=== PATIENT | male | born 1990 | race Caucasian/White ===

== ENCOUNTER 2021-07-15 11:23 | Day surgery (SDC) | payer OTHER ==
[2021-07-15] MEDS ORDERED: Sodium Chloride 0.9(Preservative Free) 10 ML IJ ONE (11:24)
[2021-07-15] MEDS ORDERED: Depo-Medrol 40 MG/ML IM ONE (11:24)
[2021-07-15] MEDS ORDERED: DIPRIVAN 200 MG/20 ML IV ONE (14:42)
[2021-07-15] MEDS ORDERED: Lactated Ringers 1,000 ML IV ONE (15:11)
--- NOTE | 2021-07-15 16:36 | XRAY ---
Indication: Right L3-L5 transforaminal CE. Intraoperative fluoroscopy provided for 20 seconds. 4 digital spot images submitted for interpretation demonstrates posterior needle tips projecting over the expected right L3 and L4 nerve roots. Small amount of contrast injected for needle tip placement. Correlate with intraoperative findings/report.
--- NOTE | 2021-07-15 16:54 | XRAY ---
20 seconds of fluoroscopy was used in surgery for a right L3-L5 transforaminal CE.
== END 2021-07-15 15:05 | disposition home or self-care (01) ==
LOC: SDC-PAIN 11:23
PROVIDERS: ATTEND Psychiatry & Neurology Pain Medicine
DX: M54.16 Radiculopathy, lumbar region (principal); Z79.899 Other long term (current) drug therapy
CPT/HCPCS: 64483; 64484; 72100; 77003; J1030; J2704; Q9966

== ENCOUNTER 2021-09-02 12:54 | Day surgery (SDC) | payer OTHER ==
[2021-09-02] MEDS ORDERED: Decadron 4 MG INJ IV ONE (12:55)
[2021-09-02] MEDS ORDERED: Sodium Chloride 0.9(Preservative Free) 10 ML IJ ONE (12:55)
[2021-09-02] MEDS ORDERED: Depo-Medrol 40 MG/ML IM ONE (12:55)
[2021-09-02] MEDS ORDERED: XYLOCAINE-MPF 1% 5ML SDV IJ ONE (12:55)
[2021-09-02] MEDS ORDERED: DIPRIVAN 200 MG/20 ML IV ONE (15:00)
[2021-09-02] MEDS ORDERED: Lactated Ringers 1,000 ML IV ONE (15:25)
--- NOTE | 2021-09-02 17:08 | XRAY ---
Indication: Right L3-L5 transforaminal CE. Intraoperative fluoroscopy provided for 27 seconds. 4 digital spot images submitted for interpretation demonstrate posterior needle tips projecting over the expected right L3 and L4 nerve roots. Small amount of contrast injected for needle tip placement. Correlate with intraoperative findings/report.
--- NOTE | 2021-09-02 17:10 | XRAY ---
Indication: Right piriformis muscle injection. Intraoperative fluoroscopy provided for 11 seconds. Single digital spot image submitted for interpretation demonstrate posterior needle tip projecting over the expected right piriformis muscle. Small amount of contrast injected for needle tip placement. Correlate with intraoperative findings/report.
--- NOTE | 2021-09-02 17:15 | XRAY ---
11 seconds of fluoroscopy was used in surgery for a right piriformis injection.
--- NOTE | 2021-09-02 17:15 | XRAY ---
27 seconds of fluoroscopy was used in surgery for a right L3-L5 transforaminal CE.
== END 2021-09-02 15:26 | disposition home or self-care (01) ==
LOC: SDC-PAIN 12:54
PROVIDERS: ATTEND Psychiatry & Neurology Pain Medicine
DX: M54.16 Radiculopathy, lumbar region (principal); M79.18 Myalgia, other site; Z79.899 Other long term (current) drug therapy
CPT/HCPCS: 64483; 64484; 72020; 72100; 77002; 77003; J1030; J1100; J2704; Q9966